=== PATIENT | male | born 1955 | race Caucasian/White ===

== ENCOUNTER 2024-12-03 17:47 | Observation (INO) | payer MEDICARE, BC, SELFPAY ==
[2024-12-03 09:50] VITALS: BP 165/71
[2024-12-03 10:15] LABS: % Basophils 0.6 % (0-2); % Eosinophils 2.8 % (0-6); % Immature Granulocytes 0.1 % (0-0.5); % Lymphocytes 26.4 % (20.5-51.1); % Monocytes 11.8 % (1.7-9.3); % Neutrophils 58.3 % (42.2-75.2); Absolute Basophils 0.1 10^3/uL (0-0.2); Absolute Eosinophils 0.2 10^3/uL (0-0.7); Absolute Lymphocytes 2.2 10^3/uL (1.2-3.4); Absolute Neutrophils 4.8 10^3/uL (1.4-6.5); Hematocrit 47.3 % (39.0-52.0); Hemoglobin 15.8 g/dL (13.0-18.0); Mean Corp Hgb Conc. 33.4 g/dL (33.0-37.0); Mean Corpuscular Hgb 30.4 pg (27.0-31.0); Mean Corpuscular Volume 91.1 fL (80.0-94.0); Mean Platelet Volume 10.7 fL (7.4-10.4); Nucleated Red Blood Cells % 0 % (-); Platelet Count 194 10^3/uL (130-400); Red Blood Cell Count 5.19 10^6/uL (4.70-6.10); Red Cell Dist. Width 13.2 % (11.5-14.5); White Blood Cell Count 8.2 10^3/uL (4.8-10.8)
[2024-12-03 10:19] LABS: Urine Albumin 1+ (Neg - Trace); Urine Bilirubin Negative (Negative); Urine Character Clear (Clear); Urine Color Yellow; Urine Glucose Negative (Negative); Urine Ketone Negative (Negative); Urine Leukocyte Negative (Negative); Urine Nitrite Negative (Negative); Urine Occult Blood 1+ (Negative); Urine Specific Gravity 1.025 (<1.030); Urine Urobilinogen Negative (Neg - 1+)
[2024-12-03 10:28] LABS: Urine White Cell 0-2 /HPF (0-5)
[2024-12-03 10:29] LABS: ALT (SGPT) 22 U/L (0-50); AST (SGOT) 28 U/L (17-59); Alkaline Phosphatase 78 U/L (38-126); Blood Urea Nitrogen 24 mg/dl (9-20); Calcium 9.4 mg/dl (8.4-10.2); Carbon Dioxide 26 mmol/L (22-30); Chloride 104 mmol/L (98-107); Glucose 106 mg/dl (70-99); Potassium 4.7 mmol/L (3.5-5.1); Sodium 141 mmol/L (135-145); Total Protein 8.3 g/dl (6.3-8.2); eGFR > 60.00
--- NOTE | 2024-12-03 11:11 | ED.GENMED ---
History of Present Illness
<JASON Yuan - Last Filed: 12/03/24 18:21>
General
Chief Complaint: Urinary Symptoms
Source: patient
Exam Limitations: none
Time Seen by Provider: 12/03/24 11:06
Nursing documentation reviewed up to this point in time: agreed with
History of Present Illness
History of Present Illness:
Patient is a 61-year-old male who presents to the ER for evaluation on Sunday 4 days ago he started with frequency of urination however urine output was last. Symptoms continued he was seen at urgent care on Sunday 3 days ago started on Cipro
however urine has since come back negative for infection. He saw his family doctor yesterday was ordered renal bladder ultrasound but this morning had some low back pain. In addition he has noticed that when he moves his bowels he does not feel
that he has a complete bowel movement. His family doctor sent him in today for concerns of spine issues causing bowel bladder problems.
Patient complains of mild discomfort across low back denies any injury he denies any saddle paresthesia he denies any numbness tingling weakness in lower extremities.
He denies any recent fever chills illness.
He denies any nausea vomiting.
He had some mild discomfort to the penis area
No prior history of kidney stone. He denies any obvious hematuria.
Review of Systems
<JASON Yuan - Last Filed: 12/03/24 18:21>
Review of Systems
Allergies reviewed?: Yes
All Other Systems: ROS reviewed and negative except as documented in HPI and ROS
Constitutional: Reports no symptoms; Denies fever, fatigue or chills
Respiratory: Reports no symptoms
Cardiac: Reports no symptoms
ABD/GI: Denies abdominal pain, nausea or vomiting
: Reports difficulty voiding, urgency and other (slight decreased urine outpt ); Denies flank pain
Musculoskeletal: Reports back pain (mild low back pain )
Skin: Reports no symptoms
Neurological: Reports no symptoms
Psychiatric: Reports no symptoms
Phy Exam
<JASON Yuan - Last Filed: 12/03/24 18:21>
General Physical Exam
General Presentation: no apparent distress
General age: appears stated age
General Skin: warm and dry
General Habitus: normal
General Mental: alert
General Hydration: appears well hydrated
Gastrointestinal Exam
Gastrointestinal Exam: non tender and soft
Neurological Exam
Neurological Exam: alert, oriented x3, no motor deficits, no sensory deficits and other (Normal patellar reflexes bilateral lower extremities; intact distal sensation bilateral lower extremities normal dorsiflexion plantarflexion steady ambulatory
gait)
[place]ne Coma Scale
Eye Opening: Spontaneous
Verbal Response: Oriented
Motor Response: Obeys Commands
GCS Total Score: 15
Musculoskeletal Exam
Musculoskeletal Exam: other ( no bony tenderness, no cva tenderness )
Skin Exam
Skin Exam: normal color and warm/dry
Psychiatric Exam
Psychiatric Exam: normal mood/affect
Course
<JASON Yuan - Last Filed: 12/03/24 18:21>
Orders/Labs/Results
Orders:
Orders
12/03/24 10:06
Comprehensive Metabolic Panel Urgent
12/03/24 10:07
C-Reactive Protein Urgent
Comment: ADD ON
Complete Blood Count/With Diff Urgent
Erythrocyte Sed Rate Urgent
Comment: ADD ON
Urinalysis Reflex To Culture Urgent
Date Specimen was Collected: 12/03/24
Time Specimen was Collected: 09:54
Urine Microscopic Reflex Cult Urgent
12/03/24 11:27
Bladder Scan- Treatment ONCE
12/03/24 11:46
CT Abd/pelvis W Iv Cont Urgent
Comment:
Reason For Exam: abd /back pain
12/03/24 11:48
Add On- LAB Urgent
Tests Added?: sed rate and CRP
12/03/24 11:59
IV Insert/Care/Rem.- Treatment PRN
0.9% Sodium Chloride 1000 ml [Nss] 1,000 ml IV BOLUS
12/03/24 Dinner
Regular
At Your Request: Full Participation
12/03/24 15:16
NEUROLOGY CONSULT Urgent
Consulting Provider: Delmis Herrera
Was physician already notified: Yes
Reason for consult: diff voiding and moving bowels
12/03/24 16:58
MR Lumbar W/o & With Contrast Routine
Comment:
Reason For Exam: incomplete cauda equina s-me
OK for patient to be off Cardiac Monitoring for MRI: No
Recent pill cam endoscopy?: No
MR Thoracic Spine W/o & With Routine
Comment:
Reason For Exam: ncomplete cauda equina s-me
OK for patient to be off Cardiac Monitoring for MRI: No
Recent pill cam endoscopy?: No
12/03/24 17:04
Admit/Transfer Patient As Directed
Co-Sign Provider:
Level of Care: Observation services
Assign to:: Medical/Surgical
Physician / Group: Emi Anderson
Diagnosis: urinary urgency
PRN Pain Medication Management As Directed
May give lesser potent ordered pain med per pt: Yes
preference::
Protocol:: Medication orders for pain may be administered in a
manner that supports deferring to patient preference
when the pt is:
- Requesting an ordered lesser potent pain medication.
Least to most potent pain medications are defined
as: acetaminophen < NSAID < tramadol < opioids
(morphine, oxycodone, hydromorphone).
- Requesting a lesser dose of the same medication IF
ORDERED.
- Requesting a less intrusive route of administration
if both routes are prescribed by the provider (PO <
IV).
12/03/24 17:06
Code Status As Directed
Resuscitation Status: Full Code
Abnormal Lab Results
12/03/24 12/03/24
10:06 10:07
MPV 10.7 H fL
(7.4-10.4)
Absolute Monos (auto) 1.0 H 10^3/uL
(0.1-0.6)
Monocytes % 11.8 H %
(1.7-9.3)
BUN 24 H mg/dl
(9-20)
Glucose 106 H mg/dl
(70-99)
Total Protein 8.3 H g/dl
(6.3-8.2)
Ur Occult Blood Reflex 1+ A
(Negative)
Urine RBC 3-6 A /HPF
(0-2)
Urine Albumin (Reflex) 1+ A
(Neg - Trace)
12/03/24 10:07
12/03/24 10:06
Vital Signs
Initial and Last Documented VS:
Initial Vital Signs
Temp Pulse Resp BP Pulse Ox
98.0 F 64 16 165/71 98
12/03/24 09:50 12/03/24 09:50 12/03/24 09:50 12/03/24 09:50 12/03/24 09:50
Last Documented Vital Signs
Temp Pulse Resp BP Pulse Ox
98.0 F 79 18 116/67 98
12/03/24 09:50 12/03/24 18:11 12/03/24 18:11 12/03/24 18:11 12/03/24 18:11
<Kole Andrea MD - Last Filed: 12/03/24 12:45>
Orders/Labs/Results
Orders:
Orders
12/03/24 10:06
Comprehensive Metabolic Panel Urgent
12/03/24 10:07
C-Reactive Protein Urgent
Comment: ADD ON
Complete Blood Count/With Diff Urgent
Erythrocyte Sed Rate Urgent
Comment: ADD ON
Urinalysis Reflex To Culture Urgent
Date Specimen was Collected: 12/03/24
Time Specimen was Collected: 09:54
Urine Microscopic Reflex Cult Urgent
12/03/24 11:27
Bladder Scan- Treatment ONCE
12/03/24 11:46
CT Abd/pelvis W Iv Cont Urgent
Comment:
Reason For Exam: abd /back pain
12/03/24 11:48
Add On- LAB Urgent
Tests Added?: sed rate and CRP
12/03/24 11:59
IV Insert/Care/Rem.- Treatment PRN
0.9% Sodium Chloride 1000 ml [Nss] 1,000 ml IV BOLUS
12/03/24 Dinner
Regular
At Your Request: Full Participation
12/03/24 15:16
NEUROLOGY CONSULT Urgent
Consulting Provider: Delmis Herrera
Was physician already notified: Yes
Reason for consult: diff voiding and moving bowels
12/03/24 16:58
MR Lumbar W/o & With Contrast Routine
Comment:
Reason For Exam: incomplete cauda equina s-me
OK for patient to be off Cardiac Monitoring for MRI: No
Recent pill cam endoscopy?: No
MR Thoracic Spine W/o & With Routine
Comment:
Reason For Exam: ncomplete cauda equina s-me
OK for patient to be off Cardiac Monitoring for MRI: No
Recent pill cam endoscopy?: No
12/03/24 17:04
Admit/Transfer Patient As Directed
Co-Sign Provider:
Level of Care: Observation services
Assign to:: Medical/Surgical
Physician / Group: Emi Anderson
Diagnosis: urinary urgency
PRN Pain Medication Management As Directed
May give lesser potent ordered pain med per pt: Yes
preference::
Protocol:: Medication orders for pain may be administered in a
manner that supports deferring to patient preference
when the pt is:
- Requesting an ordered lesser potent pain medication.
Least to most potent pain medications are defined
as: acetaminophen < NSAID < tramadol < opioids
(morphine, oxycodone, hydromorphone).
- Requesting a lesser dose of the same medication IF
ORDERED.
- Requesting a less intrusive route of administration
if both routes are prescribed by the provider (PO <
IV).
12/03/24 17:06
Code Status As Directed
Resuscitation Status: Full Code
Abnormal Lab Results
12/03/24 12/03/24
10:06 10:07
MPV 10.7 H fL
(7.4-10.4)
Absolute Monos (auto) 1.0 H 10^3/uL
(0.1-0.6)
Monocytes % 11.8 H %
(1.7-9.3)
BUN 24 H mg/dl
(9-20)
Glucose 106 H mg/dl
(70-99)
Total Protein 8.3 H g/dl
(6.3-8.2)
Ur Occult Blood Reflex 1+ A
(Negative)
Urine RBC 3-6 A /HPF
(0-2)
Urine Albumin (Reflex) 1+ A
(Neg - Trace)
12/03/24 10:07
12/03/24 10:06
Vital Signs
Initial and Last Documented VS:
Initial Vital Signs
Temp Pulse Resp BP Pulse Ox
98.0 F 64 16 165/71 98
12/03/24 09:50 12/03/24 09:50 12/03/24 09:50 12/03/24 09:50 12/03/24 09:50
Last Documented Vital Signs
Temp Pulse Resp BP Pulse Ox
98.0 F 79 18 116/67 98
12/03/24 09:50 12/03/24 18:11 12/03/24 18:11 12/03/24 18:11 12/03/24 18:11
<JASON Yuan - Last Filed: 12/03/24 18:21>
MDM/Problems Addressed
MDM/Problems Addressed:
Patient is a 69-year-old male who presents to the ER for evaluation. Over the past 4 to 5 days patient has had decreased urination. He feels the urgency however only small bouts of urine are coming out of time. He was ruled out for infection at
urgent care. He then started feeling that he is not completely emptying his bowels. He was sent to the ER by family doctor. Patient denies any saddle paresthesia denies any obvious leg numbness tingling or weakness. On exam he has no deficits he
has normal reflexes normal distal sensation. Case reviewed with Dr. Andrea. CAT scan of abdomen was done and unremarkable for acute findings.
Patient is not retaining a bladder scan however due to concerning complaints neurology was consulted and evaluated patient and does feel the patient should be admitted for MRI. I did speak with radiology MRI not able to be done this evening or
today so will require admission for continued monitor to ensure no cauda equina.
<JASON Yuan - Last Filed: 12/03/24 18:21>
*Radiology
Radiology exam reviewed: radiology read reviewed
*Pulse Oximetry
Patient hypoxic: no
*Critical Care Note
Total Time (30-74mins, 75-104mins- exclusive of procedures): Not Applicable
<JASON Yuan - Last Filed: 12/03/24 18:21>
Patient Management
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
ED Attending Note
<JASON Yuan - Last Filed: 12/03/24 18:21>
-
Portions of this chart may have been created with voice recognition software.� Occasional wrong word or��sound alike� substitutions may have occurred due to the inherent limitations of voice recognition software.
<Kole Andrea MD - Last Filed: 12/03/24 12:45>
ED Attending Note
Patient seen and examined by attending physician: Yes
I performed the substantive portion of visit, reviewed & personally made and approve the management plan that is documented in note by myself or MARKELL.: Yes
ED Attending Note:
61-year-old male complaining of urinary urgency frequency and some decreased bowel movements over the last 3 to 4 days. Some low back pain this morning. No fever chills abdominal pain or any other complaints.
On exam patient is nontoxic in no distress. Warm and dry. Perfusing well. Lungs clear and equal. Heart regular rate and rhythm. Abdomen soft and nontender. No suprapubic distention. No masses no rebound or guarding. Patient has no pain with
straight leg raising. He has good lower extremity strength with plantar and dorsi flexion at the ankle. Straight leg raising by himself without issues. Patellar reflexes are equal and strong bilaterally. Gait is normal. Flexion of the hip is
normal. His got no perineal anesthesia.
Not in urinary retention based on exam and ultrasound. Nothing clinically to support an infectious issue. We will get a CT of the abdomen for any pelvic explanation for the symptoms. Doubt primary neurologic issue as patient has good patellar
reflexes good lower extremity strength no paresthesia. Workup in progress
Discharge Plan
Departure
Patient Disposition: Admit
Date of Disposition: 12/03/24
Time of Disposition: 16:07
Admit to: Med/Surg
Admit to doctor: hospitalist
Presentation/result/management discussed w/ accepting MD/DO: Hospitalist
Patient with high blood pressure during this ER visit?: Yes
Condition: Fair
Covid-19: Not Applicable
Discharge Problem:
Dysuria
Interventions
Interventions:
*Risk Screen - Suicide Last Done: 12/03/24 09:50
*General Assessment Last Done: 12/03/24 16:14
*Neglect/Abuse Screening Last Done: 12/03/24 09:50
ED- Fall Risk Assessment Last Done: 12/03/24 12:42
*ED COVID-19 Vaccine History Last Done: 12/03/24 16:14
ED-Male Genitourinary Assessment Last Done: 12/03/24 12:42
[2024-12-03 12:35] LABS: Erythrocyte Sed Rate 16 mm/hour (0-20)
[2024-12-03] MEDS: NSS 1000 IV (12:41)
--- NOTE | 2024-12-03 15:07 | CON.NEURO ---
Consultation
Order
Date of Consultation: 12/03/24
Requesting Provider: Kole Andrea MD
Reason for Consult: Difficulties voiding, moving bowels
Neurology Consultation Note.
HPI: This is a 69-year-old man who presented to [facility] on 12/03/2024 with urinary and bowel urgency. According to the patient he has had he has had urinary urgency and frequency as well as nocturia with associated bowel urgency
that started. No reports of leg weakness, sensory symptoms, imbalance, urinary or bowel incontinence or saddle anesthesia. No fever, B symptoms, recently prescribed medications except for ciprofloxacin given for suspected UTI. Mr. Aceves
endorses lower back discomfort without radicular symptoms that he noted today.
The patient takes elderberry gummies
ER VS: 165/71, 64, afebrile.
EKG:pending
PDMP: None
Labs: Normal WBCs, UA�positive for occult blood, RBCs, albumin
CT abdomen and pelvis�left parapelvic renal cysts.
PVR: 3 ml.
PMH: GERD, allergic rhinitis, chronic idiopathic urticaria, IGT, vitamin D deficiency, BMI 37.38
PSH: L knee ACL repair, Right Achilles repair
SH: , retired gate operator, non-smoker, no history excessive alcohol
FH: Father had TIAs, in his 90s, mother in her 80s
All:Latex
ROS: Constitutional: Negative. Negative for chills, fever and unexpected weight change.
HENT: Positive for chronic hearing impairment
Eyes: Negative. Negative for photophobia, pain and visual disturbance.
Respiratory: Negative for cough, choking and shortness of breath.
Cardiovascular: Negative for chest pain, palpitations and leg swelling.
Gastrointestinal: Positive for vomiting urgency
Endocrine: Negative. Negative for cold intolerance.
Genitourinary: Positive for urinary urgency
Musculoskeletal: Positive for mild back pain
Skin: Negative for rash.
Allergic/Immunologic: Negative. Negative for immunocompromised state.
Neurological: Negative for dizziness, tremors, seizures, speech difficulty, numbness and headaches.
Psychiatric/Behavioral: Negative for behavioral problems, confusion and hallucinations.
General: Well developed. In no acute distress.
Cardio: Regular rate and rhythm without murmur. Extremities are without cyanosis or edema.
Neuro:
Mental Status: Alert, oriented to person, place, and date. Normal attention and recall. Good fund of knowledge. Follows complex requests across the midline. Comprehension, naming, and repetition intact. Immediate recall 3/3.
Cranial Nerves: Pupils are equally round and reactive to light. EOMs full. Visual live full to confrontation. No ptosis. No nystagmus. V1-V3 intact to light touch and pinprick bilaterally, symmetric. Face symmetric. Impaired hearing AU.
The palate elevated well. SCMs and traps 5/5. Tongue midline. No dysarthria.
Motor: Normal bulk and tone. No pronator or arm drift. Strength 5/5 throughout. No clonus.
Reflexes: 2+ throughout the upper extremities and knees. AJ-limited exam. Plantar responses flexor bilaterally.
Sensory: Normal vibration and JPS.
Coordination: No dysmetria or tremor.
Gait: Normal base, stance, stride. Able to stand on each leg
Assessment and Plan:
I. Bladder urgency/tenesmus. Suspect incomplete cauda equina syndrome. Possible etiology includes inflammatory, autoimmune, compressive, infectious, neoplastic, less likely vascular.
II. Elevated blood pressure
III. BL SNHL
-Fall precautions
-T/LS spine MRI with and without gadolinium
-May consider CSF studies after T/LS-spine MRIs are done
-Please check ESR/CRP,
-Urology, GI consult
-Outpatient ENT consult
-DVT prophylaxys
-The case was discussed with Ms. Aceves
I personally reviewed all radiology and labs along with past medical records pertinent to current medical problems. Total time spent in patient care is 60 minutes.
Thank you for allowing us to participate in the care of this patient. We will continue to follow. Please do not hesitate to contact us with any questions or concerns.
Subjective/Objective
Subjective Data
Date of Service: December 03, 2024
Objective Data
Vital Signs
Temp Pulse Resp BP Pulse Ox
36.7 C 64 16 165/71 98
12/03/24 09:50 12/03/24 09:50 12/03/24 09:50 12/03/24 09:50 12/03/24 09:50
Lab Results
12/03/24 10:07
12/03/24 10:06
Sodium 141 mmol/L (135-145) 12/03/24 10:06
Potassium 4.7 mmol/L (3.5-5.1) 12/03/24 10:06
BUN 24 mg/dl (9-20) H 12/03/24 10:06
Glucose 106 mg/dl (70-99) H 12/03/24 10:06
Calcium 9.4 mg/dl (8.4-10.2) 12/03/24 10:06
Patient Allergies
bandaid Allergy (Uncoded 12/03/24 09:53)
Rash
Vital Signs and Labs
-
Vital Signs and Labs:
Vital Signs
Temp Pulse Resp BP Pulse Ox
36.7 C 64 16 165/71 98
12/03/24 09:50 12/03/24 09:50 12/03/24 09:50 12/03/24 09:50 12/03/24 09:50
Lab Results
12/03/24 10:07
12/03/24 10:06
Sodium 141 mmol/L (135-145) 12/03/24 10:06
Potassium 4.7 mmol/L (3.5-5.1) 12/03/24 10:06
BUN 24 mg/dl (9-20) H 12/03/24 10:06
Glucose 106 mg/dl (70-99) H 12/03/24 10:06
Calcium 9.4 mg/dl (8.4-10.2) 12/03/24 10:06
[2024-12-03 16:00] VITALS: BP 135/78
--- NOTE | 2024-12-03 16:25 | HPS.HSE ---
Family Physician
-
Family Physician: BALDEMAR BREWER
Chief Complaint
-
urinary symptoms
History of Present Illness
Patient is a 61-year-old male with past medical history significant for GERD who presented to [place] [facility] for evaluation of urinary urgency and sensation of not being able to have complete bowel movement after recommended by primary care doctor.
Patient reports that approximately 4-5 days ago he noticed urinary frequency, where he felt he had to urinate up to 5x an hour. He also states when he went he did not feel he was emptying his bladder completely. On Sunday he went to urgent care
where they collected a UA for testing and prescribed Cipro for suspected UTI. Urgent care reported that UA was negative for UTI so patient followed up with primary care doctor yesterday who gave him a script to obtain a renal ultrasound. Patient
states that at some point he noticed that he was having more frequent bowel movements and they were normal but in smaller amounts. This morning he states he woke with bilateral lower back pain and called to report to primary doctor where he
recommended he come to ED for evaluation and proper testing. Patient denies any fever, chills, cough, chest pain, shortness of breath, nausea, vomiting, constipation, or diarrhea.
Medical History
Past Medical History
Past Medical History: Reports Other
Additional Past Medical History:
GERD
seasonal allergies
Past Surgical History: Reports Other
Additional Past Surgical History:
Left ACL repair
Right Achilles repair
correction of testicular torsion as a teenager
Social History
Tobacco: Non-smoker
Alcohol: Occasional
Drug: None
Personal:
Living: With Family
Employment: Retired
Family History
Family History: Not pertinent
Allergies / Home Medications
Allergies reflects when Allergies were last updated in [facility].
Home Medications with original date entered in [facility]
Allergy/Medication List:
Allergies
Allergy/AdvReac Type Severity Reaction Status Date / Time
bandaid Allergy Rash Uncoded 12/03/24 09:53
Home Medications
cetirizine 10 mg tablet (Zyrtec) 10 mg PO HS 12/03/24
cholecalciferol (vitamin D3) 25 mcg (1,000 unit) tablet (Vitamin D3) 25 mcg PO DAILY 12/03/24
famotidine 20 mg tablet (Pepcid) 20 mg PO BID 12/03/24
metronidazole 0.75 % topical cream 1 applic topical DAILYPRN PRN face 12/03/24
montelukast 10 mg tablet 10 mg PO DAILY 12/03/24
therapeutic multivitamin 1 tab PO DAILY 12/03/24
Review of Systems
-
History Source: Patient
Constitutional: Reports No Symptoms
EENT: Reports No Symptoms
Respiratory: Reports No Symptoms
Cardiac: Reports No Symptoms
Abdomen/GI: Reports Other (frequent small bowel movements)
: Reports Frequency and Urgency
Musculoskeletal: Reports No Symptoms
Skin: Reports No Symptoms
Neurological: Reports No Symptoms
Endocrine: Reports No Symptoms
Hematologic/Lymphatic: Reports No Symptoms
Psych: Reports No Symptoms
Physical Exam
Vital Signs
Vital Signs
Temp Pulse Resp BP Pulse Ox
98.0 F 64 16 165/71 98
12/03/24 09:50 12/03/24 09:50 12/03/24 09:50 12/03/24 09:50 12/03/24 09:50
Physical Exam
General: Well Developed, Well Nourished, No Apparent Distress, Comfortable and Conversant
HEENT: NormoCephalic, Moist mucous membranes, Atraumatic, [place] Conjunctivae, Nose Appears Normal, Ears Appear Normal and Neck Nontender
Respiratory: Clear and Non Labored Respirations
Cardiac: S1/S2 and Regular Rhythm; No Murmur, Rub or Gallop
Breast: Deferred by me
GI: Soft, Non Tender, Non Distended and Normal Bowel Sounds; No Organomegaly
Rectal: Deferred by Provider
Genito-urinary: No costovertebral tender
Musculoskeletal: No Clubbing, No Cyanosis and No Edema
Skin: Warm and IV/Catheter Site; No Rash
Neuro: Awake, Alert and Nonfocal/grossly intact
Hematologic/Lymphatic: No Lymphadenopathy
Psych: Calm and Intact Judgment/Insight
Laboratory Results
-
12/03/24 10:07
12/03/24 10:06
Laboratory Results
Total Bilirubin 1.0 mg/dl (0.2-1.3) 12/03/24 10:06
AST 28 U/L (17-59) 12/03/24 10:06
ALT 22 U/L (0-50) 12/03/24 10:06
Alkaline Phosphatase 78 U/L (38-126) 12/03/24 10:06
Data Reviewed
-
CT Scan: Report Reviewed by me (Abd/Pelvis: No acute pathology of the abdomen nor pelvis identified. Left parapelvic renal cysts. Bilateral too small to characterize hypodense renal lesions likely benign cysts.)
Lab Data: Labs Reviewed by me (BUN 24, Creat 1.01)
Impression/Plan
-
IMPRESSION/PLAN:
#urinary urgency
patient reports feels like he is unable to empty bladder or complete bowel movements
- Admit to med/surg for observation
- Consult neurology
- MRI in the morning
#GERD
- continue famotidine
#Seasonal allergies
- continue cetirizine, and montelukast
Code Status: Full Code
DVT Prophylaxis: Lovenox sq
--- NOTE | 2024-12-03 17:26 | W.PN.UPDATE ---
Update Note
Progress Note Update
This is an addendum to the H&P written by Dora Mccall on 12/03/2024. Patient seen and examined independently with FIELD APPLICATIONS SPECIALIST.
69-year-old male past medical history of seasonal allergies, presenting upon request of his primary care physician due to pain across his lower back which started today and ongoing urinary urgency/difficulty urinating for few days. Also been having
frequent stools. No urinary or fecal incontinence. No neurological symptoms.
He went to urgent care who started him on antibiotic and check urinalysis which was negative so antibiotic was stopped. He saw his primary care physician who checked PSA which was negative.
Vital signs normal. Urinalysis negative here. CRP negative. Labs unremarkable.
Bladder scan did not show urinary retention. CT scan abdomen pelvis shows renal cyst.
There is concern for cauda equina syndrome. Neurology was consulted recommended MRI thoracic and lumbar spine. IV fluids were given. Continue bladder scan protocol.
[2024-12-03 18:11] VITALS: BP 116/67
[2024-12-03 20:12] VITALS: BP 141/62; BMI 36.5
[2024-12-03] MEDS: LOVENOX 40 MG SC (21:19)
[2024-12-03] MEDS: PEPCID 20 MG PO (21:20)
[2024-12-03] MEDS: ZYRTEC 10 MG PO (21:20)
[2024-12-03 23:30] VITALS: BP 120/62
[2024-12-04 07:16] VITALS: BP 127/57
--- NOTE | 2024-12-04 08:04 | W.DCSUMMARY ---
Addendum entered and electronically signed by Carli Rojas MD 12/04/24 18:33:
Read, reviewed, and agree. See same day progress note for additional details. Time spent coordinating care, DC planning, review of DC plan of care with resident, transition of care, review of records in EMR, med rec, consults, notes, d/w
consultants, nursing, family, and CM = < 30 minutes
Original Note:
Discharge Summary
Discharge Data
Date of Admission: 12/03/24
Date of Discharge: 12/04/24
Total time spent discharging patient (in min): <30min
-
Pending Results: No
Hospital Course
Discharging Physician : Dr. Yury Park, Dr. Carli Rojas
Disposition : Home
Primary care physician : Unknown
Principal Discharge diagnosis : Dysuria
Chronic Discharge diagnosis : GERD, Allergies, Asthma
Hospital Course :
Luis Felipe Aceves is a 69 year old male who presented to the [facility] for evaluation of ongoing dysuria/nocturia, subjective alteration in bowel movements and an episode of low back pain. A UA was done which showed microscopic hematuria but no infection.
A CT Abdomen and pelvis was done which did not demonstrate an acute pathology which would explain his symptoms. He was seen by neuro and concern was raised for cauda equina syndrome. ESR and CRP were done to evaluate for potential causes of Cauda
equina, though they came back within normal limits. MRI of the lumbar and thoracic spine w/ and w/o contrast were ordered. Overnight, the patient was able to void several times without symptoms and have a bowel movement without symptoms. He was
tolerating a diet and ambulating well. He expressed concern about claustrophobia and was given 0.5mg of Ativan before his MRI. However, he was unable to to proceed due to the claustrophobia and the MRI was cancelled. Given the patient's stability
and the lack of neurologic symptoms, as well as the resolution of his presenting symptoms, the patient was deemed stable for discharge with instructions to request a prescription from his PCP for an open MRI as outpatient. He was sent home on Flomax
0.4mg to be taken nightly to help relieve reported symptoms of nocturia.
Important imaging findings :
CT Abd/pelvis W Iv Cont
No acute pathology of the abdomen nor pelvis identified. Left parapelvic renal cysts. Bilateral too small to characterize hypodense renal lesions likely benign cysts.
Discharge Plan
-
Patient Disposition: Home (Routine Discharge)
Discharge Diagnosis/Procedures: Dysuria
Condition: Good
Diet: No restrictions
Activity: No restrictions
Driving Restrictions: As prior to admission
Bathing Restrictions: None
Activity Restrictions/Additional Instructions:
Will need to obtain script for open MRI from PCP
Referrals:
UNKNOWN,NO INTERVIEW [Family Provider] -
Additional Discharge Medication Instructions: Take Flomax 0.4mg at night, follow up with PCP
Prescriptions:
New
tamsulosin [Flomax] 0.4 mg capsule
0.4 mg PO HS Qty: 30 0RF
Continued
therapeutic multivitamin Tablet
1 tab PO DAILY
metronidazole 0.75 % Cream
1 applic TOPICAL DAILYPRN PRN (Reason: face)
cholecalciferol (vitamin D3) [Vitamin D3] 25 mcg (1,000 unit) Tablet
25 mcg PO DAILY
cetirizine [Zyrtec] 10 mg Tablet
10 mg PO HS
famotidine [Pepcid] 20 mg Tablet
20 mg PO BID
montelukast 10 mg Tablet
10 mg PO DAILY
Discharge Orders:
Discharge Patient (As Directed); Ordered 12/04/24
Ordered By: Yury Park
Discharge Date and Time
Discharge Date/Time: 12/04/24 17:23
Print Language: MACEDONIAN
--- NOTE | 2024-12-04 08:04 | W.PN.HOSP.TC ---
Addendum entered and electronically signed by Carli Rojas MD 12/04/24 18:21:
I saw and evaluated the patient independently. I reviewed the resident�s note and agree with findings and plan as documented by Dr. Park.
GENERAL: well developed, well nourished, male in no apparent distress, walking around the room
HEENT: NC/AT
HEART: regular rate and rhythm, +S1, +S2
LUNGS : clear to auscultation bilaterally
ABDOM: soft, nontender, nondistended, + bowel sounds
EXT: no cyanosis, clubbing, or edema
NEUROLOGIC: grossly intact
Urinary Frequency/Urgency/Low Back Pain--no signs of infection--CT scan without acute findings--no neurological symptoms--could not tolerate MRI (will need open and can do as outpt)--apprec neuro--will start flomax for possible BPH symptoms--patient
is able to void and have a bowel movement this morning.
GERD - continue with home famotidine
Seasonal Allergies - Zyrtec as needed
Asthma- stable, no supplemental oxygen requirements. Albuterol inhaler if needed. Continue with montelukast.
Code Status - Full code
Original Note:
Today's Communication/Plan
-
Pending MRI, may be able to discharge today.
Assessment / Plan
Assessment / Plan
69 yo male who presented to the ED for evaluation of urinary frequency, low back pain, and change in bowel function
#Urinary Frequency/Urgency
#Low Back Pain
- Afebrile, UA showing blood but no bacteria. CT scan shows no acute pathology of the abdomen nor pelvis, with left parapelvic renal cysts & bl renal lesions too small to characterize likely to be benign cysts.
- patient is able to void and have a bowel movement this morning. He is without neurological symptoms.
- Neurology has ordered MRI to rule out cauda equina. If MRI results without acute pathology, he can likely go home today and follow up as an outpatient.
#GERD - continue with home famotidine
#Seasonal Allergies - Zyrtec as needed
#Asthma- stable, no supplemental oxygen requirements. Albuterol inhaler if needed. Continue with montelukast.
Diet - full diet
DVT PPx - none, ambulatory
Code Status - Full code
Anticipated Discharge: Within 24 hours
Subjective/Interval History
-
Seen this morning. He has no acute complaints. He has had a normal, painless, bloodless bowel movement this morning and has urinated without pain, burning, or blood several times since admission. He has no fevers, chills, back pain, flank pain,
numbness, tingling or weakness of the legs. He is able to control his bladder and bowel function without issue. He is tolerating a diet. No nausea, vomiting, diarrhea or abdominal pain.
Objective Data
-
Vital Signs:
Vital Signs
Temp Pulse Resp BP Pulse Ox
98.0 F 61 18 120/62 97
12/03/24 23:30 12/03/24 23:30 12/03/24 23:30 12/03/24 23:30 12/03/24 23:30
I&O
12/03/24 12/04/24 12/05/24
06:59 06:59 06:59
Intake Total 480 / 480
Output Total 325 / 325
Balance 155 / 155
Review of Systems
-
History Source: Patient
Constitutional: Reports No Symptoms
EENT: Reports No Symptoms Reported
Respiratory: Reports No Symptoms
Cardiac: Reports No Symptoms
Abdomen/GI: Reports No Symptoms
Breast: Reports N/A
Genitourinary: Reports No Symptoms
Musculoskeletal: Reports No Symptoms
Neuro: Reports No Symptoms
Physical Exam
-
General: Well Developed, Well Nourished, No Apparent Distress, Comfortable and Conversant
HEENT: Normocephalic, Atraumatic, Moist Mucous Membranes, [place] Conjunctivae, PERRLA and Ears Appear Normal
Respiratory: Clear to Auscultation and Non Labored Respirations; Negative Wheezes, Rales or Rhonchi
Cardiac: Regular Rhythm and S1/S2; Negative Murmur or Rub
Breast: N/A
GI: Soft, Nontender, Nondistended and Normal Bowel Sounds
Rectal: Deferred by Provider
Genito-urinary: No Costovertebral Tender
Musculoskeletal: No Clubbing, No Cyanosis, No Edema and Normal Gait & Station
Neuro: Awake, Alert, Oriented and Other (5/5 muscle strength in the BL lower extremities. Sensation grossly normal in the BL LE. )
Psych: Calm
[2024-12-04] MEDS: VITAMIN D3 (cholecalciferol) 25 MCG PO (09:08)
[2024-12-04] MEDS: THERAGRAN 1 TABLET PO (09:08)
[2024-12-04] MEDS: SINGULAIR 10 MG PO (09:08)
[2024-12-04] MEDS: PEPCID 20 MG PO (09:08)
[2024-12-04] MEDS: NSS (PRESERVATIVE FREE) 0.25 ML IV (11:16)
[2024-12-04] MEDS: ATIVAN 0.5 MG IV (11:16)
[2024-12-04 15:04] VITALS: BP 126/59
--- NOTE | 2024-12-04 16:06 | W.PN.NEURO.1 ---
Today's Communication / Plan
-
.
Subjective/Objective
Subjective Data
Date of Service: December 04, 2024
Neurology follow-up note
Mr. Aceves endorses ongoing urinary urgency as well as nocturia. He admits to have the symptoms in the past as well. He did have 2 bowel movements however continues to have bowel movements as well.
The patient could not tolerate MRI of the spine with sedation given prior to the study.
No reports of leg weakness, sensory symptoms, back pain or incontinence.
The patient has been afebrile and normotensive.
ESR, CRP�normal
PMH: GERD, allergic rhinitis, chronic idiopathic urticaria, IGT, vitamin D deficiency, BMI 37.38
PSH: L knee ACL repair, Right Achilles repair
SH: , retired gis specialist, non-smoker, no history excessive alcohol
FH: Father had TIAs, in his 90s, mother in her 80s
All:Latex
ROS: Positive for urinary bowel urgency, chronic nocturia, anxiety,
No spinal tenderness on palpation
General: Well developed. In no acute distress.
Cardio: Regular rate and rhythm without murmur. Extremities are without cyanosis or edema.
Neuro:
Mental Status: Alert, oriented to person, place, and date. Normal attention and recall. Good fund of knowledge. No aphasia or hemineglect
Cranial Nerves: Pupils are equally round and reactive to light. EOMs full. Visual live full to confrontation. No ptosis. No nystagmus. V1-V3 intact to light touch and pinprick bilaterally, symmetric. Face symmetric. Impaired hearing AU.
The palate elevated well. SCMs and traps 5/5. Tongue midline. No dysarthria.
Motor: Normal bulk and tone. No pronator or arm drift. Strength 5/5 throughout. No clonus.
Reflexes: 2+ throughout the upper extremities and knees. AJ-limited exam. Plantar responses flexor bilaterally.
Sensory: Normal vibration and JPS.
Coordination: No dysmetria or tremor.
Gait: Normal base, stance, stride. Able to stand on each leg
Assessment and Plan:
I. Bladder urgency/tenesmus. ?Incomplete cauda equina syndrome, clinically stable.
II. ADITI
III. BL SNHL
-Fall precautions
-Open T/LS spine MRI with and without gadolinium(to be done as OP)
-Urology, GI consult
-Outpatient ENT consult
-DVT prophylaxis
-Outpatient neurology follow-up
-Please recall neurology services any questions or concerns.
I personally reviewed all radiology and labs along with past medical records pertinent to current medical problems. Total time spent in patient care is 35 minutes.
Thank you for allowing us to participate in the care of this patient. Please do not hesitate to contact us with any questions or concerns.
Objective Data
Vital Signs
Temp Pulse Resp BP Pulse Ox
36.8 C 72 18 126/59 95
12/04/24 15:04 12/04/24 15:04 12/04/24 15:04 12/04/24 15:04 12/04/24 15:04
Lab Results
12/03/24 10:07
12/03/24 10:06
Sodium 141 mmol/L (135-145) 12/03/24 10:06
Potassium 4.7 mmol/L (3.5-5.1) 12/03/24 10:06
BUN 24 mg/dl (9-20) H 12/03/24 10:06
Glucose 106 mg/dl (70-99) H 12/03/24 10:06
Calcium 9.4 mg/dl (8.4-10.2) 12/03/24 10:06
Patient Allergies
bandaid Allergy (Uncoded 12/03/24 09:53)
Rash
Vital Signs and Labs
-
Vital Signs and Labs:
Vital Signs
Temp Pulse Resp BP Pulse Ox
36.8 C 72 18 126/59 95
12/04/24 15:04 12/04/24 15:04 12/04/24 15:04 12/04/24 15:04 12/04/24 15:04
Lab Results
12/03/24 10:07
12/03/24 10:06
Sodium 141 mmol/L (135-145) 12/03/24 10:06
Potassium 4.7 mmol/L (3.5-5.1) 12/03/24 10:06
BUN 24 mg/dl (9-20) H 12/03/24 10:06
Glucose 106 mg/dl (70-99) H 12/03/24 10:06
Calcium 9.4 mg/dl (8.4-10.2) 12/03/24 10:06
Medications
-
Medications:
Generic Name Dose Route Start Last Admin
Trade Name Freq PRN Reason Stop Dose Admin
Acetaminophen 650 mg 12/03/24 20:00
Acetaminophen 325 Mg Tablet PO 12/31/24 19:59
Q4HPRN PRN
mild pain/JEFFRIES/temp> 100.4F
Cetirizine HCl 10 mg 12/03/24 22:00 12/03/24 21:20
Cetirizine Hcl 10 Mg Tablet PO 12/31/24 21:59 10 mg
HS ALMA DELIA Administration
Cholecalciferol 25 mcg 12/04/24 08:00 12/04/24 09:08
Cholecalciferol (Vitamin D3) 25 Mcg Tablet (1,000 Units) PO 01/01/25 07:59 25 mcg
DAILY ALMA DELIA Administration
Enoxaparin Sodium 40 mg 12/03/24 20:00 12/03/24 21:19
Enoxaparin Sodium 40 Mg/0.4 Ml Syringe SC 12/31/24 19:59 40 mg
QPM ALMA DELIA Administration
Famotidine 20 mg 12/03/24 20:00 12/04/24 09:08
Famotidine 20 Mg Tablet PO 12/31/24 19:59 20 mg
BID ALMA DELIA Administration
Montelukast Sodium 10 mg 12/04/24 08:00 12/04/24 09:08
Montelukast Sodium 10 Mg Tablet PO 01/01/25 07:59 10 mg
DAILY ALMA DELIA Administration
Multivitamins Therapeutic 1 tablet 12/04/24 08:00 12/04/24 09:08
Multivitamin Tablet PO 01/01/25 07:59 1 tablet
DAILY ALMA DELIA Administration
Sodium Chloride 0 flush 12/03/24 21:00
Sodium Chloride 0.9% (Flush) Syringe IV 12/31/24 20:59
PER PROTOCOL ALMA DELIA
Home Medications
-
Home Medications
cetirizine 10 mg tablet (Zyrtec) 10 mg PO HS 12/03/24
cholecalciferol (vitamin D3) 25 mcg (1,000 unit) tablet (Vitamin D3) 25 mcg PO DAILY 12/03/24
famotidine 20 mg tablet (Pepcid) 20 mg PO BID 12/03/24
metronidazole 0.75 % topical cream 1 applic topical DAILYPRN PRN face 12/03/24
montelukast 10 mg tablet 10 mg PO DAILY 12/03/24
therapeutic multivitamin 1 tab PO DAILY 12/03/24
== END 2024-12-04 17:23 | disposition home or self-care (01) ==
LOC: 4 EAST ACU 17:47
PROVIDERS: Emergency Medicine; ADMITTING PHYSICIAN Hospitalist; ATTENDING PHYSICIAN Internal Medicine; CONSULT PHYSICIAN Psychiatry & Neurology Neurology; EMERGENCY PHYSICIAN Emergency Medicine
DX: R30.0 Dysuria (principal); R35.0 Frequency of micturition; M54.50 Low back pain, unspecified; R39.15 Urgency of urination; R10.9 Unspecified abdominal pain; R35.1 Nocturia; R31.29 Other microscopic hematuria; N28.1 Cyst of kidney, acquired; K21.9 Gastro-esophageal reflux disease without esophagitis; E55.9 Vitamin D deficiency, unspecified; R73.02 Impaired glucose tolerance (oral); L50.1 Idiopathic urticaria; R03.0 Elevated blood-pressure reading, without diagnosis of hypertension; J45.909 Unspecified asthma, uncomplicated; F41.1 Generalized anxiety disorder; F40.240 Claustrophobia
CPT/HCPCS: 51798; 74177; 80053; 81003; 81015; 85025; 85652; 86140; 99285; G0378; Q9967

== ENCOUNTER → 2025-02-04 09:24 | Outpatient (REF) | payer MEDICARE, BC, SELFPAY | LOC: SDSPAT 09:24 | PROVIDERS: ATTENDING PHYSICIAN Surgery; FAMILY PHYSICIAN Internal Medicine | DX: D41.4 Neoplasm of uncertain behavior of bladder (principal) | CPT/HCPCS: 36415; 93005 ==

== ENCOUNTER 2025-02-16 06:20 | Day surgery (SDC) | payer MEDICARE, BC, SELFPAY ==
[2025-02-04 14:16] VITALS: BMI 35.4
[2025-02-16] VITALS (9 sets, daily range): BP systolic 94–139; BP diastolic 52–76; BMI 35.4
[2025-02-16] MEDS: NORMOSOL-R/PLASMALYTE-A 1000 IV (12:54)
[2025-02-16] MEDS: CYSVIEW KIT 100 MG INTRAVES (13:12)
[2025-02-16] MEDS: SYRINGE NON-PUMP 50 MG IRRIG ×2 (16:04→16:05)
[2025-02-16] MEDS: SYRINGE NON-PUMP 50 ML IRRIG ×2 (16:04→16:05)
[2025-02-16] MEDS: Pyridium 200 MG PO (16:16)
[2025-02-16] MEDS: DETROL LA 4 MG PO (16:16)
[2025-02-16] MEDS: VALIUM INJECTION 2 MG IV (16:19)
== END 2025-02-16 17:40 | disposition home or self-care (01) ==
LOC: SDS 06:20
PROVIDERS: ATTENDING PHYSICIAN Surgery
DX: C67.2 Malignant neoplasm of lateral wall of bladder (principal)
CPT/HCPCS: 52235; 51720; C9738; 88307; A9589; J9201

== ENCOUNTER → 2025-09-03 14:55 | Outpatient (REF) | payer MEDICARE, BC, SELFPAY | LOC: HWRAD 14:55 | PROVIDERS: ATTENDING PHYSICIAN Nurse Practitioner Family | DX: M54.50 Low back pain, unspecified (principal) | CPT/HCPCS: 72110 ==